=== PATIENT | female | born 1995 | race Caucasian/White ===

== ENCOUNTER 2017-03-27 19:15 | Emergency (ER) | payer OTHER ==
[~2017-03-27] VITALS: Ht 165.1 cm; Wt 70.0 kg
[2017-03-27 19:15] VITALS: BP 129/74; PULSE 78; RESP 16; TEMP 99.2; O2SAT 100
[~2017-03-27 19:15] MED LIST: ADDE20XR PO; BC PILL
== END 2017-03-27 21:51 | disposition left against medical advice (07) ==
LOC: NED 19:15
DX: Z00.00 Encounter for general adult medical examination without abnormal findings (principal); Z53.21 Procedure and treatment not carried out due to patient leaving prior to being seen by health care provider
CPT/HCPCS: 99281

== ENCOUNTER 2017-03-27 21:11 | Emergency (ER) | payer OTHER ==
[~2017-03-27] VITALS: Ht 165.1 cm; Wt 71.3 kg
[2017-03-27 21:15] VITALS: BP 132/78; PULSE 93; RESP 16; TEMP 97.9; O2SAT 100
[2017-03-27] MEDS ORDERED: IBUPROFEN 800 MG TAB PO ONE (21:45)
--- NOTE | 2017-03-27 21:49 | PD ---
HPI Chief Complaint: ENT Complaint Time Seen by Provider: 21:44 Travel History International Travel<30 days: No Contact w/Intl Traveler<30days: No Traveled to known affect area: No History of Present Illness HPI 21 year-old female presents to the emergency department for complaint of 4 days of cold symptoms with sore throat nasal congestion nonproductive cough myalgias and arthralgias and subjective fever. Patient states that today she had high fever she thinks but she did not check this with thermometer. Patient has had sore throat pain that she states is killing her and rates it 5/10 in intensity. Patient is use [id number] NyQuil and DayQuil without symptomatic relief. Last period was March 07 and normal for her and patient denies . Patient has not had any productive cough shortness of breath chest pain abdominal pain dysuria frequency urgency flank pain hematuria or diarrhea. No skin rash. Patient states she's had to miss work because of her symptoms. Patient is not taking any ibuprofen or acetaminophen. PFSH Past Medical History Narrative Medical ADHD, UTI; no tobacco use; nursing notes reviewed ADD: Yes ADHD: Yes Diminished Hearing: No Genitourinary: Yes (HX OF UTI/BLADDER INFECTIONS) Immunizations Current: Yes Tetanus Vaccination: > 5 Years Influenza Vaccination: No ?: Not LMP: 03/07/17 Menopausal: No Past Surgical History Surgical History: No Previous Surgery Social History Alcohol Use: No Tobacco Use: No Substance Use: No Allergies-Medications (Allergen,Severity, Reaction): Coded Allergies: No Known Allergies (Verified Adverse Reaction, Unknown, 03/27/17) Reported Meds & Prescriptions Reported Meds & Active Scripts Active Adderall Xr 24 HR (Amphetamine/Dextroamphetamine) 20 Mg Cap 20 Mg PO 2 PO QAM Once daily in the morning. Reported [Bc Pill] Review of Systems Except as stated in HPI: all other systems reviewed are Neg General / Constitutional: Positive: Fever, No: Chills HENT: Positive: Sore Throat, Congestion, No: Neck Pain, Earache Cardiovascular: No: Chest Pain or Discomfort Respiratory: Positive: Cough, No: Shortness of Breath Gastrointestinal: No: Nausea, Vomiting, Diarrhea, Abdominal Pain Genitourinary: No: Dysuria, Flank Pain Musculoskeletal: Positive: Myalgias, Arthralgias Skin: No Rash Neurologic: No: Weakness Psychiatric: No: Anxiety Hematologic/Lymphatic: No: Lymph Node Enlargement Physical Exam Narrative GENERAL: Well-developed well-nourished female in no acute distress no respiratory distress; no stridor no hoarseness SKIN: Warm and dry. HEAD: Normocephalic. EYES: No scleral icterus. No injection or drainage. ENT: Mucous members moist airway is patent mild erythema no exudative change or edema tympanic membranes no redness dullness or loss of landmarks no perforation NECK: Supple, trachea midline. No JVD or lymphadenopathy. Supple, no nuchal rigidity CARDIOVASCULAR: Regular rate and rhythm without murmurs, gallops, or rubs. RESPIRATORY: Breath sounds equal bilaterally. No accessory muscle use. GASTROINTESTINAL: Abdomen soft, non-tender, nondistended. MUSCULOSKELETAL: No cyanosis, or edema. BACK: Nontender without obvious deformity. No CVA tenderness. Data Data Last Documented VS Vital Signs Date Time Temp Pulse Resp B/P (MAP) Pulse Ox O2 Delivery O2 Flow Rate FiO2 03/27/17 21:15 97.9 93 16 132/78 (96) 100 Orders Orders Group A Rapid Strep Screen (03/27/17 21:44) Influenzae A/B Antigen (03/27/17 21:44) Ibuprofen (Motrin) (03/27/17 21:45) Strep Culture (Group A) (03/27/17 21:50) Ed Discharge Order (03/27/17 22:10) MDM Medical Decision Making Medical Screen Exam Complete: Yes Emergency Medical Condition: Yes Medical Record Reviewed: Yes Interpretation(s) Rapid strep antigen: Negative Influenza A/B antigen: Negative Differential Diagnosis Viral syndrome upper respiratory infection sinusitis pharyngitis tonsillitis influenza bronchitis pneumonia Narrative Course Specimens collected for rapid strep antigen influenza and patient given one- time dose of ibuprofen as well as oral hydration Rapid strep and influenza antigens are negative this is shared with the patient and patient is otherwise stable for outpatient management. Diagnosis Primary Impression: Upper respiratory infection Referrals: Primary Care Physician call for appointment Patient Instructions: General Instructions Additional Instructions: Increase fluid hydration May use [id number] Chloraseptic spray lozenges and warm salt gargles for symptomatic relief Take acetaminophen/Tylenol as often as every 4 hours as needed for fever 100.4 F or greater or for minor pain Take ibuprofen/Advil/Motrin 600 mg as often as every 6 hours or up to 800 mg as often as every 8 hours for fever 100.4F or greater for pain associated with inflammation Follow-up with primary care provider Return to the emergency department for any concerns or change in condition Med/Other Pt SpecificInfo: No Change to Meds Disposition: 01 DISCHARGE HOME Condition: Stable Parris Arreola MD Mar 27, 2017 21:49
== END 2017-03-27 22:16 | disposition home or self-care (01) ==
LOC: PHEFT 21:11
DX: J06.9 Acute upper respiratory infection, unspecified (principal); R05 Cough; M79.1 Myalgia; M25.50 Pain in unspecified joint; R50.9 Fever, unspecified; Z86.59 Personal history of other mental and behavioral disorders; Z87.440 Personal history of urinary (tract) infections
CPT/HCPCS: 87081; 87804; 87880; 99283

== ENCOUNTER 2017-07-12 16:57 | Emergency (ER) | payer OTHER ==
[~2017-07-12] VITALS: Ht 165.1 cm; Wt 73.1 kg
[2017-07-12 17:23] VITALS: BP 118/66; PULSE 85; RESP 16; TEMP 99.5; O2SAT 99
[2017-07-12] MEDS ORDERED: AMOX500C PO (17:48)
--- NOTE | 2017-07-12 17:48 | PD ---
HPI Chief Complaint: ENT Complaint Time Seen by Provider: 17:42 Travel History International Travel<30 days: No Contact w/Intl Traveler<30days: No Traveled to known affect area: No History of Present Illness HPI 22-year-old female complains of sore throat. Patient states that the symptoms started yesterday. Patient denies earache. Patient denies any coughing congestion. Patient denies abdominal pain. Patient denies any fever. Patient denies any nausea vomiting diarrhea. Patient denies any chance of being . PFSH Past Medical History ADD: Yes ADHD: Yes Diminished Hearing: No Genitourinary: Yes (HX OF UTI/BLADDER INFECTIONS) Immunizations Current: Yes Tetanus Vaccination: Unknown Influenza Vaccination: No ?: Not LMP: 06/29/17 Menopausal: No Social History Alcohol Use: No Tobacco Use: No Substance Use: No Allergies-Medications (Allergen,Severity, Reaction): Coded Allergies: No Known Allergies (Verified Adverse Reaction, Unknown, 07/12/17) Reported Meds & Prescriptions Reported Meds & Active Scripts Active Adderall Xr 24 HR (Amphetamine/Dextroamphetamine) 20 Mg Cap 20 Mg PO 2 PO QAM Once daily in the morning. Reported [Bc Pill] Review of Systems General / Constitutional: No: Fever Eyes: No: Visual changes HENT: Positive: Sore Throat, No: Headaches Cardiovascular: No: Chest Pain or Discomfort Respiratory: No: Shortness of Breath Gastrointestinal: No: Abdominal Pain Genitourinary: No: Dysuria Musculoskeletal: No: Pain Skin: No Rash Neurologic: No: Weakness Psychiatric: No: Depression Endocrine: No: Polydipsia Hematologic/Lymphatic: No: Easy Bruising Physical Exam Narrative GENERAL: Well-nourished, well-developed patient. SKIN: Focused skin assessment warm/dry. HEAD: Normocephalic. EYES: No scleral icterus. No injection or drainage. TM: Clear. Throat: Erythematous with edema. NECK: Supple, trachea midline. No JVD. Patient has mild anterior cervical lymphadenopathy. No meningismus CARDIOVASCULAR: Regular rate and rhythm without murmurs, gallops, or rubs. RESPIRATORY: Breath sounds equal bilaterally. No accessory muscle use. GASTROINTESTINAL: Abdomen soft, non-tender, nondistended. MUSCULOSKELETAL: No cyanosis, or edema. BACK: Nontender without obvious deformity. No CVA tenderness. Data Data Last Documented VS Vital Signs Date Time Temp Pulse Resp B/P (MAP) Pulse Ox O2 Delivery O2 Flow Rate FiO2 07/12/17 17:23 99.5 85 16 118/66 (83) 99 MDM Medical Decision Making Medical Screen Exam Complete: Yes Emergency Medical Condition: Yes Differential Diagnosis Differential diagnosis including pharyngitis, strep versus viral. Narrative Course 22-year-old female with sore throat. Diagnosis Primary Impression: Pharyngitis Qualified Codes: J02.9 - Acute pharyngitis, unspecified Patient Instructions: General Instructions Additional Instructions: Amoxicillin as directed. Tylenol for fever. Follow-up with personal physician. Return if worse. Med/Other Pt SpecificInfo: Prescription(s) given Scripts Amoxicillin (Amoxicillin) 500 Mg Cap 500 MG PO TID for Infection, #30 CAP 0 Refills Prov: Bishop Canela MD 07/12/17 Disposition: 01 DISCHARGE HOME Condition: Stable Bishop Canela MD Jul 12, 2017 17:48
== END 2017-07-12 18:18 | disposition home or self-care (01) ==
LOC: PHEFT 16:57
DX: J02.9 Acute pharyngitis, unspecified (principal)
CPT/HCPCS: 99283